=== PATIENT | male | born 1975 | race Caucasian/White ===

== ENCOUNTER 2016-06-19 22:49 | Emergency (ER) | payer OTHER ==
[2016-06-19] MEDS ORDERED: PROMETHAZINE HCL INJ 12.5 MG in SODIUM CHLORIDE 0.9% 50ML 50 ML IVPB ONE (23:18)
[2016-06-19] MEDS ORDERED: SODIUM CHLORIDE 0.9% 1000ML 1,000 ML IVS ONE (23:18)
[2016-06-19] MEDS ORDERED: KETOROLAC TROMETHAMINE INJ 30 MG/ML VIAL IV ONE (23:18)
--- NOTE | 2016-06-19 23:18 | ED.PDOC ---
History of Present Illness - General Chief Complaint: Abdominal Pain Stated Complaint: abd pain , n/v Time Seen by Provider: 06/19/16 23:14 Source: patient Additional Information: C/O ABDOMINAL PAIN, ONSET TODAY. STATES HAPPENS BEFORE AND HE GETS MORPHINE WHICH HELPS. EPIGASTRIC UPPER ABDOMEN SHARP CONSTANT - History of Present Illness Timing/Duration: other - TODAY Severity: moderate Improving Factors: nothing Worsening Factors: nothing Associated Symptoms: nausea/vomiting Allergies/Adverse Reactions: Allergies NO KNOWN ALLERGY Allergy (Verified 06/19/16 23:27) Review of Systems - Review of Systems Constitutional: Denies: chills, fever EENTM: Denies: eye pain, blurred vision, ear pain, throat pain Respiratory: Denies: cough, short of breath, wheezing Cardiology: Denies: chest pain, edema, syncope Gastrointestinal/Abdominal: States: abdominal pain, nausea, vomiting, other - POSSIBLY SMALL AMOUNT OF HEMOPTYSIS. Denies: constipation Genitourinary: States: no symptoms reported Musculoskeletal: Denies: back pain, neck pain Skin: States: no symptoms reported Neurological: States: no symptoms reported Endocrine: States: no symptoms reported Hematologic/Lymphatic: States: easy bleeding, easy bruising Past Medical History (General) - Patient Medical History Hx Hypertension: Yes Hx Gastroesophageal Reflux: Yes - gastitits Surgical History: other - Vaccination History Hx Tetanus, Diphtheria Vaccination: No Hx Influenza Vaccination: No Hx Pneumococcal Vaccination: No Immunizations Up to Date: No - Social History Hx Tobacco Use: Yes Hx Alcohol Use: Yes - Female History Patient is a Female of Child Bearing Age (10 -59 yrs old): No Patient : No - Triage Comment ED Triage Comment: note pt has bleeding gums, or blood in mouth. Rt eye bruised. multiple tatoos on body Family Medical History - Family History Mother Hx Family Diabetes: Yes Physical Exam - Physical Exam General Appearance: Alert, Obese, Other - MILD DISTRESS DTP Eye Exam: bilateral normal Ears, Nose, Throat: hearing grossly normal, normal ENT inspection Neck: non-tender, full range of motion Respiratory: lungs clear, normal breath sounds Cardiovascular/Chest: regular rate, rhythm, no edema Gastrointestinal/Abdominal: normal bowel sounds, soft, no organomegaly, no pulsatile mass, other - TTP RUQ AND EPIGASTRIC (MILD) Back Exam: normal inspection, no vertebral tenderness Extremity: normal range of motion, non-tender, normal inspection Neurologic: hide dyer II-XII nml as tested, alert Skin Exam: other - HAS MULTIPLE AREAS OF BRUSING DIFFERENT AGES. IS VERY VAGUE ABOUT WHERE THESES CAME FROM Lymphatic: no adenopathy Progress - Progress Progress: 06/20/16 00:53 CURRENTLY SLEEPING, NO DISTRESS. ABDOMEN SOFT NTTP. TALKED WITH HIS FATHER. STATES HE HAS BEEN ACTING NORMALLY. DOES HAVE A HX OF THROMBOCYTOPENIA. - EKG/XRAY/CT XRAY: abdomen - JANA Departure - Departure Clinical Impression: Pancreatitis Qualifiers: Chronicity: acute Pancreatitis type: alcohol induced Qualifier Code: (K85.2) Alcohol induced acute pancreatitis Hypertension Qualifiers: Hypertension type: essential hypertension Qualifier Code: (I10) Essential ( primary) hypertension GERD (gastroesophageal reflux disease) Qualifiers: Esophagitis presence: esophagitis presence not specified Qualifier Code: (K21.9 ) Gastro-esophageal reflux disease without esophagitis Time of Disposition: 01:05 Disposition: Discharge to Home or Self Care Condition: Fair Departure Forms: ED Discharge - Pt. Copy, Patient Portal Self Enrollment Instructions: DI for Abdominal Pain-Adult
[2016-06-19] MEDS ORDERED: PROMETHAZINE HCL INJ 25 MG/ML VIAL ONE (23:37)
[2016-06-19] MEDS ORDERED: SODIUM CHLORIDE 0.9% 50ML 50 ML ONE (23:38)
--- NOTE | 2016-06-20 00:28 | RAD ---
EXAM DESCRIPTION: XR ABDOMEN 2 VIEWS SUPINE ERECT CLINICAL HISTORY: 40 y/o Mabdominal pain COMPARISON: None. TECHNIQUE: Frontal view chest x-ray and two views of the abdomen. FINDINGS: Mild cardiomegaly and vascular congestion. No consolidating infiltrates or pleural effusions. Evaluation of the abdomen is suboptimal from patient body habitus. No free air is identified beneath the hemidiaphragms. There appears to be moderate stool throughout the colon. No dilated loops of bowel to suggest obstruction. Phleboliths in the pelvis. Degenerative changes in the hips. IMPRESSION: The study is suboptimal from patient body habitus. There appears to be cardiomegaly with vascular congestion. No definite acute intra-abdominal abnormality. Electronically signed by: Loc Mccrary MD 06/20/2016 00:26
[2016-06-20 00:41] VITALS: BP 146/84
[2016-06-20 01:15] VITALS: TEMP 97.9; O2SAT 90
== END 2016-06-20 01:15 | disposition home or self-care (01) ==
LOC: ER 22:49
DX: K85.20 Alcohol induced acute pancreatitis without necrosis or infection (principal); K21.9 Gastro-esophageal reflux disease without esophagitis; I10 Essential (primary) hypertension; Z87.891 Personal history of nicotine dependence; Z83.3 Family history of diabetes mellitus
CPT/HCPCS: 36415; 74020; 80053; 82150; 83690; 85025; 85610; 85730; A4216; J1885; J2060; J2550; J7030